=== PATIENT | female | born 1945 | race Caucasian/White ===

== ENCOUNTER 2020-01-29 21:41 | Emergency (ER) | payer MEDICARE, OTHER ==
[~2020-01-29] VITALS: Ht 162.6 cm; Wt 140.0 kg
--- NOTE | 2020-01-29 21:50 | NUR ---
CHESTX RAY COMPLETE
[2020-01-29 22:11] LABS: BASOPHILS # (AUTO) 0.1 X10'3 (0-0.2); BASOPHILS % (AUTO) 0.6 % (0-1); EOSINOPHILS # (AUTO) 0.1 X10'3 (0-0.9); HEMATOCRIT 47.5 % (35.0-45.0); LYMPHOCYTES % (AUTO) 16.2 % (21-51); MEAN CORPUSCULAR HGB CONC 33.8 g/dL (33.0-36.5); MEAN CORPUSCULAR VOLUME 94.5 FL (78-98); MEAN PLATELET VOLUME 8.8 FL (7.4-10.4); MONOCYTES # (AUTO) 0.6 X10'3 (0-0.9); MONOCYTES % (AUTO) 5.3 % (2-12); NEUTROPHILS # (AUTO) 9.4 X10'3 (1.8-7.7); NEUTROPHILS % (AUTO) 76.9 % (42-75); PLATELET COUNT 207 X10'3 (140-440); RED BLOOD COUNT 5.02 X10'6 (4.20-5.60); RED CELL DISTRIBUTION WIDTH 13.2 % (11.5-14.5); WHITE BLOOD COUNT 12.2 X10'3 (4.5-11.0)
[2020-01-29] MEDS ORDERED: aspirin 81mg tab.chew PO ONE (22:15)
[2020-01-29] MEDS ORDERED: ondansetron/PF 4mg/2ml inj IV ONE (22:15)
[2020-01-29 22:26] LABS: ALANINE AMINOTRANSFERASE 23 U/L (12-78); ALBUMIN 4.2 G/DL (3.4-5.0); ALBUMIN/GLOBULIN RATIO 1.6 (1.1-1.5); ALKALINE PHOSPHATASE 57 IU/L (46-116); ANION GAP 10 (8-16); ASPARTATE AMINO TRANSFERASE 19 U/L (10-37); BILIRUBIN,TOTAL 0.5 MG/DL (0.1-1.0); BLOOD UREA NITROGEN 14 MG/DL (7-18); BUN/CREATININE RATIO 13.7 (6.6-38.0); CALCIUM 9.3 MG/DL (8.5-10.1); CHLORIDE 98 MMOL/L (99-107); CREATININE 1.02 MG/DL (0.40-0.90); GLUCOSE 125 MG/DL (70-104); POTASSIUM 3.4 MMOL/L (3.5-5.1); SODIUM 132 MMOL/L (135-145); TOTAL CARBON DIOXIDE 24.5 MMOL/L (24-32); TOTAL PROTEIN 6.9 G/DL (6.4-8.2); eGFR 53 ML/MIN
[2020-01-29] MEDS ORDERED: potassium Cl 20 mEq SR tablet PO STA (22:42)
[2020-01-29] MEDS ORDERED: acetaminophen 325mg tablet PO ONE (22:45)
--- NOTE | 2020-01-29 23:12 | NUR ---
FAMILY PHONED FOR PATIENT TO BE PICKED UP BY CHARGE NURSE
--- NOTE | 2020-01-29 23:20 | NUR ---
PT DAUGHTER CAN BE REACHED [phone]
[2020-01-30 00:15] VITALS: BP 125/79
[2020-02-01] MEDS ORDERED: HYDR25TA4 PO (15:01)
[2020-02-01] MEDS ORDERED: CYCL-1 PO (15:01)
[2020-02-01] MEDS ORDERED: SUMA100T16 PO (15:01)
[2020-02-01] MEDS ORDERED: PROG100C11 PO (15:01)
[2020-02-01] MEDS ORDERED: [UNRECOGNIZED DRUG - CODE] PO (15:01)
[2020-02-01] MEDS ORDERED: POTA10TA36 PO (15:01)
[2020-02-01] MEDS ORDERED: THYR60TA2 PO (15:04)
[2020-02-01] MEDS ORDERED: CHOL200080 PO (15:09)
[2020-02-01] MEDS ORDERED: [UNRECOGNIZED DRUG - CODE] PO (15:09)
== END 2020-01-29 23:55 | disposition home or self-care (01) ==
LOC: ER 21:42
DX: R55 Syncope and collapse (principal); E87.6 Hypokalemia; R11.0 Nausea; R42 Dizziness and giddiness; R51 Headache; I10 Essential (primary) hypertension
CPT/HCPCS: 36415; 71045; 80053; 83880; 84484; 85025; 93005; 96374; 99285; J2405

== ENCOUNTER 2020-02-08 10:04 | Day surgery (SDC) | payer MEDICARE, OTHER ==
[2020-02-01 15:45] LABS: BASOPHILS # (AUTO) 0.1 X10'3 (0-0.2); BASOPHILS % (AUTO) 0.9 % (0-1); EOSINOPHILS # (AUTO) 0.1 X10'3 (0-0.9); EOSINOPHILS % (AUTO) 1.2 % (0-6); LYMPHOCYTES % (AUTO) 24.6 % (21-51); MEAN CORPUSCULAR HEMOGLOBIN 32.2 PG (27.0-31.0); MEAN CORPUSCULAR HGB CONC 34.4 g/dL (33.0-36.5); MEAN CORPUSCULAR VOLUME 93.7 FL (78-98); MEAN PLATELET VOLUME 8.9 FL (7.4-10.4); MONOCYTES # (AUTO) 0.6 X10'3 (0-0.9); MONOCYTES % (AUTO) 7.2 % (2-12); NEUTROPHILS # (AUTO) 5.5 X10'3 (1.8-7.7); NEUTROPHILS % (AUTO) 66.1 % (42-75); PRE OP HEMATOCRIT 48.5 % (35.0-45.0); PRE OP HEMOGLOBIN 16.7 g/dL (12.0-16.0); PRE OP PLATELET COUNT 224 X10'3 (140-440); RED BLOOD COUNT 5.17 X10'6 (4.20-5.60); RED CELL DISTRIBUTION WIDTH 13.7 % (11.5-14.5)
[2020-02-01 15:59] LABS: ALBUMIN 4.4 G/DL (3.4-5.0); ALBUMIN/GLOBULIN RATIO 1.5 (1.1-1.5); ALKALINE PHOSPHATASE 56 IU/L (46-116); BLOOD UREA NITROGEN 10 MG/DL (7-18); BUN/CREATININE RATIO 10.6 (6.6-38.0); CALCIUM 9.2 MG/DL (8.5-10.1); CHLORIDE 96 MMOL/L (99-107); CREATININE 0.94 MG/DL (0.40-0.90); PRE OP ALT 27 U/L (30-65); PRE OP ANION GAP 5 (8-16); PRE OP AST 21 U/L (10-37); PRE OP BILIRUB, TOTAL 0.6 MG/DL (0.0-1.0); PRE OP GLUCOSE 90 MG/DL (70-104); PRE OP POTASSIUM 3.5 MMOL/L (3.4-5.1); PRE OP SODIUM 131 MMOL/L (135-145); TOTAL CARBON DIOXIDE 30.2 MMOL/L (24-32); TOTAL PROTEIN 7.4 G/DL (6.4-8.2); eGFR 58 ML/MIN
[~2020-02-08] VITALS: Ht 162.6 cm; Wt 63.5 kg
[2020-02-08] VITALS (10 sets, daily range): BP systolic 117–135; BP diastolic 65–77
[~2020-02-08 10:04] MED LIST: CHOL200080 PO; CYCL-1 PO; DOCUMENT DATE & TIME OF BETA-BLOCKER PO ONE; HYDR25TA4 PO; POTA10TA36 PO; PROG100C11 PO; SUMA100T16 PO; THYR60TA2 PO; [UNRECOGNIZED DRUG - CODE] PO; [UNRECOGNIZED DRUG - CODE] PO; ceFAZolin 2gm in dextrose, iso 50 ML IV ONE; famotidine 20mg tablet PO ONE; ringers solution, lacted 1,000 ML IV SCH
[2020-02-08 10:55] LABS: ISTAT CREATININE 0.7 mg/dL (0.6-1.1); ISTAT HGB 17.7 g/dl (12.0-16.0); ISTAT IONIZED CALCIUM 1.29 mmol/L (1.03-1.32); ISTAT K 3.7 mmol/L (3.5-5.1); POC BUN/CREATININE RATIO 17.1 (6.6-38.0)
[2020-02-08] MEDS ORDERED: sevoflurane 250ml liquid IH ONE (10:58)
[2020-02-08] MEDS ORDERED: fentaNYL /PF 50mcg/ml 5ml ampule ONE (11:02)
[2020-02-08] MEDS ORDERED: triamcinolone acetonide 40mg/ml inj ONE (12:39)
[2020-02-08] MEDS ORDERED: BUPIVACAINE liposomal/PF 13.3 MG/ML vial IM ONE (12:39)
[2020-02-08] MEDS ORDERED: LIDOcaine 2% (20mg/ml) 5ml vial ONE (13:43)
[2020-02-08] MEDS ORDERED: dexamethasone sod phosphate 4mg/ml inj. ONE (13:43)
[2020-02-08] MEDS ORDERED: ondansetron/PF 4mg/2ml inj ONE (13:43)
[2020-02-08] MEDS ORDERED: neostigmine methylsulfate 1 MG/ML 10ml vial ONE (13:43)
[2020-02-08] MEDS ORDERED: propofol inj 20 ML IV ONE (13:43)
[2020-02-08] MEDS ORDERED: rocuronium 10mg/ml inj IV ONE (13:43)
[2020-02-08] MEDS ORDERED: glycopyrrolate 0.2mg/ml inj ONE (13:43)
--- NOTE | 2020-02-08 13:57 | NUR ---
Received from OR via , accompanied by Anesthesiologist DR PACKER and report given by Anesthesiolgist. AWAKENS TO VOICE. VITALS STABLE. DRESSING DI. SHANTELLE PAIN. MOVES AL EXTREMITIES.
[2020-02-08] MEDS ORDERED: normal saline 1000ml 1,000 ML IV ONE (14:06)
[2020-02-08] MEDS ORDERED: ondansetron/PF 4mg/2ml inj IV PRN (14:10)
[2020-02-08] MEDS ORDERED: HYDROmorphone inj. 0.5 MG/0.5 ML DISP.SYRIN IV PRN ×2 (14:10)
[2020-02-08] MEDS ORDERED: morphine 2 MG/ML inj. syringe IV PRN (14:10)
[2020-02-08] MEDS ORDERED: HYDROcodone/acetaminophen 10/325mg tab PO ONE (15:20)
--- NOTE | 2020-02-08 15:47 | NUR ---
AWAKE AND ORIENTED. VITALS STABLE. DRESSING DI. STATES PAIN IMPROVING. BACK BRACE PLACED. HOME WITH HER DAUGHTER AT THIS TIME.
== END 2020-02-08 15:47 | disposition home or self-care (01) ==
LOC: PAS 10:04
PROVIDERS: ATTEND Orthopaedic Surgery
DX: M51.17 Intervertebral disc disorders with radiculopathy, lumbosacral region (principal); I10 Essential (primary) hypertension; G43.909 Migraine, unspecified, not intractable, without status migrainosus; G89.29 Other chronic pain; Z11.59 Encounter for screening for other viral diseases; Z98.890 Other specified postprocedural states; Z90.710 Acquired absence of both cervix and uterus; Z79.899 Other long term (current) drug therapy
CPT/HCPCS: 36415; 63030; 72100; 76000; 80047; 80053; 85025; C1758; C9290; J1100; J1170; J2001; J2405; J2704; J2710; J3010; J3301; J7050; J7120; U0003; A4215; A4618; A6253; A6258; A6449; A7000; J3490

== ENCOUNTER 2023-04-20 17:04 | Emergency (ER) | payer MEDICARE, OTHER ==
[~2023-04-20] VITALS: Ht 162.6 cm; Wt 64.0 kg
[~2023-04-20 17:04] MED LIST changes: -DOCUMENT DATE & TIME OF BETA-BLOCKER PO ONE; +POTA-206 PO; -POTA10TA36 PO; -ceFAZolin 2gm in dextrose, iso 50 ML IV ONE; -famotidine 20mg tablet PO ONE; -ringers solution, lacted 1,000 ML IV SCH
[2023-04-20 17:12] VITALS: PULSE 67
--- NOTE | 2023-04-20 18:09 | NUR ---
While EKG was getting done, pt was sat up in bed, pt became very dizzy and nauseous. CT called to get CT done STAT. provider aware
[2023-04-20 18:11] VITALS: BP 103/61; RESP 18; O2SAT 99
[2023-04-20 18:15] LABS: BASOPHILS # (AUTO) 0.1 X10'3 (0-0.2); BASOPHILS % (AUTO) 0.6 % (0-1); EOSINOPHILS # (AUTO) 0.1 X10'3 (0-0.9); EOSINOPHILS % (AUTO) 0.8 % (0-6); HEMATOCRIT 43.3 % (35.0-45.0); HEMOGLOBIN 14.8 g/dl (12.0-16.0); LYMPHOCYTES % (AUTO) 8.4 % (21-51); MEAN CORPUSCULAR HEMOGLOBIN 32.8 PG (27.0-31.0); MEAN CORPUSCULAR HGB CONC 34.1 g/dL (33.0-36.5); MEAN CORPUSCULAR VOLUME 96.1 FL (78-98); MEAN PLATELET VOLUME 8.3 FL (7.4-10.4); MONOCYTES # (AUTO) 0.8 X10'3 (0-0.9); MONOCYTES % (AUTO) 6.9 % (2-12); NEUTROPHILS % (AUTO) 83.3 % (42-75); PLATELET COUNT 223 X10'3 (140-440); RED CELL DISTRIBUTION WIDTH 13.9 % (11.5-14.5)
[2023-04-20 18:22] LABS: ALANINE AMINOTRANSFERASE 138 U/L (12-78); ALBUMIN/GLOBULIN RATIO 1.7 (1.1-1.5); ALKALINE PHOSPHATASE 58 IU/L (46-116); ANION GAP 9 (8-16); ASPARTATE AMINO TRANSFERASE 122 U/L (10-37); BILIRUBIN,TOTAL 0.4 MG/DL (0.1-1.0); BLOOD UREA NITROGEN 18 MG/DL (7-18); CALCIUM 9.8 MG/DL (8.5-10.1); CHLORIDE 97 MMOL/L (99-107); CREATININE 0.82 MG/DL (0.40-0.90); GLUCOSE 114 MG/DL (70-104); POTASSIUM 3.5 MMOL/L (3.5-5.1); SODIUM 132 MMOL/L (135-145); TOTAL CARBON DIOXIDE 26.3 MMOL/L (24-32); TOTAL PROTEIN 6.4 G/DL (6.4-8.2); eCRCL 48 ML/MIN; eGFR 67 ML/MIN
--- NOTE | 2023-04-20 19:22 | NUR ---
AT BEDSIDE C-COLLAR REMOVAL
[2023-04-20] MEDS ORDERED: LIDOcaine 1% W/epiNEPHrine 1:100,000 20ml vial SQ ONE (19:32)
[2023-04-20] MEDS ORDERED: LIDOCAINE 1%/EPI 1:100,000 inj. 10 ML multi-dose vial SQ ONE (19:40)
--- NOTE | 2023-04-20 21:15 | NUR ---
HEAD CLEANED OF DRIED BLOOD. NO LAC SEEN MD INFORMED. MD AT BEDSIDE TO CHECK OUT HEAD.
--- NOTE | 2023-04-20 21:34 | NUR ---
iv dc'd pt being discharged dressing applied
--- NOTE | 2023-04-20 21:35 | NUR ---
pt could not provide urine md tate
== END 2023-04-20 21:36 | disposition home or self-care (01) ==
LOC: ER 17:04
DX: S01.111A Laceration without foreign body of right eyelid and periocular area, initial encounter (principal); W18.39XA Other fall on same level, initial encounter; Y93.89 Activity, other specified; Y92.89 Other specified places as the place of occurrence of the external cause; Y99.8 Other external cause status
CPT/HCPCS: 12013; 36415; 70450; 71045; 72125; 80053; 84484; 85025; 93005; 99285; J3490; A6449

== ENCOUNTER 2023-05-02 12:14 | Emergency (ER) | payer MEDICARE, OTHER ==
[~2023-05-02] VITALS: Ht 162.6 cm; Wt 65.0 kg
[2023-05-02 12:25] VITALS: TEMP 97
[2023-05-02 13:12] LABS: BASOPHILS # (AUTO) 0.1 X10'3 (0-0.2); BASOPHILS % (AUTO) 0.6 % (0-1); EOSINOPHILS # (AUTO) 0.1 X10'3 (0-0.9); EOSINOPHILS % (AUTO) 0.6 % (0-6); HEMATOCRIT 45.8 % (35.0-45.0); HEMOGLOBIN 15.8 g/dl (12.0-16.0); LYMPHOCYTES # (AUTO) 2.7 X10'3 (1.1-4.8); MEAN CORPUSCULAR HGB CONC 34.4 g/dL (33.0-36.5); MEAN PLATELET VOLUME 8.7 FL (7.4-10.4); MONOCYTES # (AUTO) 0.8 X10'3 (0-0.9); MONOCYTES % (AUTO) 7.3 % (2-12); NEUTROPHILS # (AUTO) 7.2 X10'3 (1.8-7.7); NEUTROPHILS % (AUTO) 66.5 % (42-75); PLATELET COUNT 254 X10'3 (140-440); RED BLOOD COUNT 4.77 X10'6 (4.20-5.60); RED CELL DISTRIBUTION WIDTH 14.3 % (11.5-14.5); WHITE BLOOD COUNT 10.8 X10'3 (4.5-11.0)
[2023-05-02 13:24] LABS: ALANINE AMINOTRANSFERASE 30 U/L (12-78); ALBUMIN 4.2 G/DL (3.4-5.0); ALBUMIN/GLOBULIN RATIO 1.5 (1.1-1.5); ALKALINE PHOSPHATASE 73 IU/L (46-116); ANION GAP 10 (8-16); ASPARTATE AMINO TRANSFERASE 24 U/L (10-37); BILIRUBIN,TOTAL 0.5 MG/DL (0.1-1.0); BLOOD UREA NITROGEN 17 MG/DL (7-18); BUN/CREATININE RATIO 18.1 (10.0-20.0); CALCIUM 10.4 MG/DL (8.5-10.1); CHLORIDE 97 MMOL/L (99-107); CREATININE 0.94 MG/DL (0.40-0.90); GLUCOSE 98 MG/DL (70-104); POTASSIUM 3.7 MMOL/L (3.5-5.1); PRO BRAIN NATRIURETIC PEPTIDE 73 PG/ML (0-450); SODIUM 130 MMOL/L (135-145); TOTAL CARBON DIOXIDE 22.7 MMOL/L (24-32); eCRCL 42 ML/MIN; eGFR 57 ML/MIN
[2023-05-02] MEDS ORDERED: aspirin 81mg, enteric-coated 1 TAB TABLET.DR PO ONE (14:45)
[2023-05-02] MEDS ORDERED: nitroGLYCERIN 0.4mg SUBLingual tab SL ONE (14:45)
[2023-05-02] MEDS ORDERED: normal saline 1000ml 1,000 ML IV ONE ×2 (14:50→16:20)
[2023-05-02 15:06] LABS: D-DIMER 0.23 MG/L FEU (0-0.50)
[2023-05-02 16:38] VITALS: BP 150/78; PULSE 70; RESP 19; O2SAT 98
--- NOTE | 2023-05-02 20:09 | NUR ---
iv dc'd pt being discharged dressing applied
[2023-05-02] MEDS ORDERED: NITR0.4T51 SL (20:14)
== END 2023-05-02 20:19 | disposition home or self-care (01) ==
LOC: ER 12:14
DX: R07.9 Chest pain, unspecified (principal); R10.13 Epigastric pain
CPT/HCPCS: 36415; 71045; 75572; 80053; 83880; 84484; 85025; 85379; 93005; 96360; 99285; J7030

== ENCOUNTER → 2025-04-20 | Outpatient (CLI) | payer MEDICARE, OTHER ==
--- NOTE | 2025-04-20 12:44 | RADIOLOGY REPORT ---
EXAM: MR MRI LUMBAR SPINE CLINICAL HISTORY: SCIATICA L5 DISTRBUTION,EVAL FOR STENOSIS COMPARISON: CT CT CERVICAL SPINE on DOS: 04/20/23, LUMBAR SPINE LIMITED on DOS: 02/08/20 TECHNIQUE: MRI imaging of the lumbar was performed on a MRI imaging system without intravenous contrast. FINDINGS GENERAL Multilevel disc degeneration. Alignment: Grade 1 retrolisthesis of L2 on L3. Vertebrae: Vertebral body height is well maintained without evidence of a recent compression fracture. Conus: Conus medullaris terminates at the L1 level. T12-L1: The disc configuration is normal. No spinal canal or neural foraminal stenosis. Facet arthrosis. L1-2: The disc configuration is normal. No spinal canal or neural foraminal stenosis. The facet joints are normal. L2-3: Grade 1 retrolisthesis of L2 on L3 by 2.7 mm. Disc desiccation. Central disc protrusion measured 5.45 mm in radial dimension. No spinal canal or neural foraminal stenosis. Facet arthrosis. L3-4: Disc desiccation and 3.45 mm disc bulge. Mild disc height loss. Mild left subarticular zone stenosis. Mild bilateral foraminal stenosis. The facet joints are normal. L4-5: Disc desiccation and disc bulge. Severe disc height loss. No spinal canal stenosis. Mild right and moderate left foraminal stenosis. Facet arthrosis. L5-S1: Disc desiccation. Mild disc height loss. Disc bulge with superimposed right subarticular disc protrusion. No spinal canal stenosis. Mild bilateral foraminal stenosis. The facet joints are normal. IMPRESSION: 1. Multilevel disc degeneration. Multilevel foraminal stenosis, most pronounced and moderate at L4-L5. Mild left subarticular zone stenosis at L3-L4 level.
== END | disposition home or self-care (01) ==
LOC: MRI 10:47
PROVIDERS: ATTEND Physician Assistant Medical
DX: M51.17 Intervertebral disc disorders with radiculopathy, lumbosacral region (principal); M48.061 Spinal stenosis, lumbar region without neurogenic claudication; M43.16 Spondylolisthesis, lumbar region; M54.50 Low back pain, unspecified
CPT/HCPCS: 72148